=== PATIENT | male | born 1955 | race Caucasian/White ===

== ENCOUNTER → 2020-11-22 15:59 | Outpatient (CLI) | payer OTHER, SELFPAY ==
--- NOTE | 2020-11-22 16:03 | DI.MRI.S_ITS ---
PROCEDURE: MR LUMBAR SPINE WO CON INDICATIONS: Radiculopathy, lumbar region TECHNIQUE: Noncontrast sagittal T1 spin echo and T2 fast echo, sagittal STIR, axial T1 and T2 fast spin echo through the lumbar spine. In cases with scoliosis, additional coronal T2 fast spin echo may be performed. COMPARISON: [facility], MR, MR LUMBAR SPINE WITHOUT CONTRAST, 11/16/2018, 9:56. [facility] [place], CR, XR LUMBAR SPINE 2 OR 3 VIEWS, 11/07/2020, 15:07. FINDINGS: Image quality: Excellent. Alignment and Curvature: 5 lumbar type vertebral bodies are present by plain film. There is loss of normal lumbar lordosis. There is mild, grade 1 retrolisthesis of L1 on L2, L2 on L3, L3 on L4, and L5 on S1. Bone Marrow: Marrow is of normal overall signal. No acute vertebral body compression fractures. There is moderate reactive signal within the endplates adjacent to the L5-S1 intervertebral disc. Mild reactive signal within the endplates adjacent to the T10-T11, T11-T12, T12-L1, L1-L2, L2-L3, L3-L4, and L4-L5 intervertebral discs. Right L4-L5 hemilaminotomy. Spinal Cord: Conus medullaris terminates at the L1-L2 disc space level. Visualized cord demonstrates normal signal and size. There is a small lipoma of the filum terminalis which does not significantly contribute to canal, or foraminal stenosis. Paraspinous Soft Tissues: No paravertebral masses. T12-L1: Moderate disc desiccation. Mild disc height loss and diffuse disc bulge. Mild facet and ligamentum flavum hypertrophy. Mild epidural lipomatosis. Mild canal stenosis. Mild bilateral foraminal stenosis. No significant change. L1-L2: Moderate disc desiccation. Mild disc height loss and diffuse disc bulge. Mild facet and ligamentum flavum hypertrophy. Mild epidural lipomatosis. Mild canal stenosis. Mild bilateral foraminal stenosis. No significant change. L2-L3: Moderate disc height loss and desiccation. Mild diffuse disc bulge. Mild facet and ligamentum flavum hypertrophy. Mild epidural lipomatosis. Mild canal stenosis. Mild bilateral foraminal stenosis. No significant change. L3-L4: Moderate disc desiccation. Mild disc height loss and diffuse disc bulge. Moderate epidural lipomatosis. Mild facet and ligamentum flavum hypertrophy. There is increased, moderate to severe canal stenosis. No change in moderate bilateral foraminal stenosis. L4-L5: Moderate disc desiccation. Mild disc height loss. Mild diffuse disc bulge with superimposed right far lateral protrusion, increased from the prior examination. Postsurgical sequelae. There is decreased, mild canal stenosis. There is increased, moderate to severe left and increased, severe right foraminal stenosis. Left greater than right L4 nerve root compression is present. L5-S1: Severe disc height loss and desiccation. Mild diffuse disc bulge. Mild facet and ligamentum flavum hypertrophy. Moderate epidural lipomatosis. Increased, moderate canal stenosis. Increased, moderate to severe bilateral foraminal stenosis. IMPRESSION: 1. Multilevel degenerative disc and facet disease, as well as ligamentum flavum hypertrophy and epidural lipomatosis. 2. Postsurgical sequelae. 3. Multilevel canal stenoses, worst at L3-L4, where there is moderate to severe canal stenosis. 4. Multilevel foraminal stenoses, worst at L4-L5 where there is associated intraforaminal nerve root compression. Recommend correlation with clinical symptoms to ascertain relevance of this finding. Dictated by: Jon Rob M.D. on 11/22/2020 at 16:43 Approved by: Jon Rob M.D. on 11/22/2020 at 16:49
== END ==
PROVIDERS: Referring Provider Orthopaedic Surgery Orthopaedic Surgery of the Spine; Visit Provider Orthopaedic Surgery Orthopaedic Surgery of the Spine
DX: M51.16 Intervertebral disc disorders with radiculopathy, lumbar region (principal); M51.17 Intervertebral disc disorders with radiculopathy, lumbosacral region; M48.061 Spinal stenosis, lumbar region without neurogenic claudication; M48.07 Spinal stenosis, lumbosacral region; E88.2 Lipomatosis, not elsewhere classified
CPT/HCPCS: 72148

== ENCOUNTER → 2021-03-13 11:30 | Outpatient (CLI) | payer OTHER, SELFPAY | PROVIDERS: Referring Provider Orthopaedic Surgery Orthopaedic Surgery of the Spine; Visit Provider Orthopaedic Surgery Orthopaedic Surgery of the Spine | DX: Z01.818 Encounter for other preprocedural examination (principal) | CPT/HCPCS: 93005 ==

== ENCOUNTER → 2021-03-26 10:20 | Outpatient (CLI) | payer OTHER, SELFPAY ==
[2021-03-26 16:17] LABS: COVID19 -Nasal RAPID Negative (Negative)
== END ==
PROVIDERS: Visit Provider Nurse Practitioner Family
DX: Z01.812 Encounter for preprocedural laboratory examination (principal); Z20.822 Contact with and (suspected) exposure to COVID-19
CPT/HCPCS: 87635

== ENCOUNTER → 2021-03-26 11:38 | Outpatient (CLI) | payer OTHER, SELFPAY ==
--- NOTE | 2021-03-26 11:42 | DI.CT.S_ITS ---
PROCEDURE: CT LUMBAR SPINE WO CON INDICATIONS: Spinal stenosis, lumbar region with neurogenic cla TECHNIQUE: Noncontrast 3 mm thick sections acquired from the T12 level to the sacrum. Sagittal and coronal reformats were constructed. For radiation dose reduction, the following was used: automated exposure control. COMPARISON: [facility], MR, MR LUMBAR SPINE WO CON, 11/22/2020, 16:21. FINDINGS: Image quality: Excellent. Bones: No acute vertebral body compression fractures. No suspicious lytic or blastic bony lesions. No pars defects. S-shaped scoliotic curvature is seen. There is mild retrolisthesis seen at L2-L3, with minimal retrolisthesis seen at L3-L4. Mild retrolisthesis is seen at L5-S1. T12-L1: Mild loss of disc height is seen. Calcification is seen along this disc level, as on series 6, image 32. No significant disc bulge is seen. No significant neural foraminal or central canal narrowing can be seen. L1-L2: Mild loss of disc height is seen. Mild to moderate disc bulge is seen, which is eccentric to the right side. Mild bilateral neural foraminal narrowing is seen. Mild central canal narrowing is seen. L2-L3: Mild loss of disc height is seen. Vacuum disc phenomenon is seen at this level. Mild to moderate disc bulge is seen. Bridging endplate osteophytes are seen. Moderate bilateral neural foraminal narrowing is seen. Moderate central canal narrowing is seen. L3-L4: The disc height is well preserved. Mild to moderate disc bulge is seen, with a mild central disc protrusion. Moderate bilateral neural foraminal narrowing is seen. At least moderate central canal narrowing is seen. L4-L5: The disc height is well preserved. At least moderate disc bulge is seen. There is right hemilaminectomy change seen at this level. At least moderate facet hypertrophy is seen. There is moderate to severe bilateral neural foraminal narrowing seen, right worse than left. Mild central canal narrowing is seen. L5-S1: Moderate to severe loss of disc height is seen. Vacuum disc phenomenon is seen at this level. Endplate irregularity and sclerosis can be seen. At least moderate disc bulge is seen. There is at least moderate right-sided and moderate to severe left-sided neural foraminal narrowing seen. At least moderate central canal narrowing is seen. Soft tissues: No retroperitoneal masses or hematomas. Visualized aorta is normal in caliber. Dense atherosclerotic calcification can be seen. A normal appendix is incidentally noted. IMPRESSION: Multiple levels of lumbar spine degenerative change are seen, which are similar to the prior MRI. Prior right hemilaminectomy change again seen at L4-L5. Dictated by: Bruce Heredia M.D. on 03/26/2021 at 11:07 Approved by: Bruce Heredia M.D. on 03/26/2021 at 11:11
== END ==
PROVIDERS: PCP Internal Medicine; Referring Provider Orthopaedic Surgery Orthopaedic Surgery of the Spine; Visit Provider Orthopaedic Surgery Orthopaedic Surgery of the Spine
DX: M48.062 Spinal stenosis, lumbar region with neurogenic claudication (principal); M47.816 Spondylosis without myelopathy or radiculopathy, lumbar region
CPT/HCPCS: 72131

== ENCOUNTER 2021-03-28 10:17 | Day surgery (SDC) | payer OTHER, SELFPAY ==
[2021-03-21 09:43] VITALS: BMI 32.1
[2021-03-28] VITALS (18 sets, daily range): BP systolic 86–178; BP diastolic 47–97; PULSE 66–91; RESP 9–18; TEMP 35.9–36.8; O2SAT 88–97; BMI 32.1
--- NOTE | 2021-03-28 | DI.RAD.S_ITS ---
PROCEDURE: XR LUMBAR SPINE 2-3V INDICATIONS: L4-5 L5-S1 TLIF TECHNIQUE: 3 intraoperative fluoroscopic views of the lumbar spine were acquired. COMPARISON: None. FINDINGS: Intraoperative fluoroscopic images of lumbar spine shows posterior fusion at L4 through S1 levels with intervertebral spacer placement at L3-4 and L4-5 levels. IMPRESSION: Fluoro guidance was provided intraoperatively for posterior fusion at L4 through S1 levels. Dictated by: Nino Barreto M.D. on 03/28/2021 at 16:50 Approved by: Nino Barreto M.D. on 03/28/2021 at 16:51
[2021-03-28] MEDS: LACTATED RINGERS 1,000 ML 42 ML IV ×3 (11:02→17:59)
[2021-03-28] MEDS: ACETAMINOPHEN 325 MG TABLET 975 MG PO (11:50)
--- NOTE | 2021-03-28 12:07 | PM.PREOP ---
Pre-operative Note COVID-19 COVID-19 status: Negative Result date/Date tested (Pos, Neg/Pending): 03/26/21 Interval Note History & Physical reviewed/Exam performed by Physician: Yes Changes to H&P: No
[2021-03-28] MEDS: CEFAZOLIN 1 GM VIAL 2 GM IV ×3 (13:20→21:32)
--- NOTE | 2021-03-28 14:01 | SUR.OPER ---
Prone on spine table, head in foam head support, padded chest and pelvic supports, gel pad at knees, lower legs supported by pillows; nipples, genitalia and toes free of pressure, arms secured on foam padded arm boards at <90 degrees abduction. Tape over blanket at thigh secured to table.
[2021-03-28] MEDS: BUPIVACAINE 0.25% (PF) VIAL 30 ML INJ (14:11)
[2021-03-28] MEDS: EPINEPHrine 1 MG/ML 0.15 MG INJ (14:12)
[2021-03-28] MEDS: BUPIVACAINE LIPOSOME 266 MG/20 ML VIAL INJ (14:13)
--- NOTE | 2021-03-28 17:18 | PM.OP.1 ---
Operative Date/Time/Diagnoses Date of procedure: 03/28/21 Time of procedure: 13:00 Pre-op diagnosis: 1. L4-5, L5-S1 post laminectomy syndrome 2. Lumbar spinal stenosis with radiculopathy Post-op diagnosis: same Procedure & Clinicians Procedure: 1. L4-5, L5-S1 Postero-lateral and posterior interbody fusion 2. L4-5, L5-S1 interbody cage placement. 3. L4-5, L5-S1 decompressive laminectomy with bilateral facetecomies 4. L4-5, L5-S1 Posterior segmental instrumentation 5. [place] of bone marrow from iliac crest 6. Utilization of microsurgical technique and operating microscope 7. Robotic navigation assisted surgery Same procedure as scheduled: Yes Indications: Patient has been having chronic back pain and worsening lumbar radiculopathy. Patient failed multiple conservative management with worsening pain weakness and numbness in her lower extremity. Patient has been having difficulty performing activity of daily living. After discussing risks benefits of treatment options, patient elected proceed with surgery. Surgeon: Bhavin Shi Applier: Tigist Nunez Click Yes if Unassisted: No Anesthesia Type: General Operative Notes Closure Type: primary Specimen(s): none sent Prosthetic devices, grafts, tissues, transplants, or devices: Globus CREO MIS screws, Rise cages Applied: catheter Estimated Blood Loss (mL): 100 Blood products transfused: none Procedure in detail: Patient was seen in the preoperative area. Risks and benefits of the surgery was discussed with the patient. Informed consent was obtained from the patient and placed in the chart. Surgical site was marked. Patient was taken to the operative room. General anesthesia was administered. Prophylactic antibiotic was given to the patient less than 30 min before the incision was made. Patient was placed into a prone position on the Manuel table. Patient's back was then prepped and draped in the sterile fashion. Time-out was performed at this time. After patient was prepped and draped, patient's PSIS was palpated and marked bilaterally. Small 1 cm incision was made over the PSIS for placement of the reference probes. Two trocar was placed into the PSIS 1 on each side. The reference probe was attached to the trocar of the reference apparatus. At this time the C-arm imaging was used to confirm AP and lateral of L4-L5, L5-S1 vertebrae and merged the C-arm imaging using the [employer] robotic navigation system with the CT of the lumbar spine. After successful merging was completed and confirmed, skin marker was used to natalia out the skin incision using the [employer] robotic arm. Bilateral incision was made at this time. Pre templated trajectory was used and guided using the [employer] robotic navigation system for bilateral L4, L5, S1 pedicle screw placement. This was done by using the robotic arm to guide the high-speed bur to make a cortical entry point. Next a drill was placed also using the robotic arm and guided using the navigation system drilling partially through bilateral L4, L5 and S1 pedicles. Next L4, L5, S1 pedicle screws it was pre templated and measured was placed onto the power armored truck driver and inserted into the pedicles bilaterally. After all 6 screws were placed C-arm imaging was taken of both AP and lateral to confirm the placement. Excellent placement of the screws were confirmed and a matched precisely with the pre planned screw placement using the navigation system. MARs retractor was inserted using [employer] [place] guidence. Globus MARS retractors was placed inside the incision and docked onto the L4 and L5 lamina. Using microsurgical technique and operating microscope, a L4, L5 laminectomy and L4-5, L5-S1 facetectomy was performed using a Kerr[place] rongeur. Patient was found have severe lateral recess and neural foramen stenosis which was fully decompressed after the laminectomy facetectomy. More than 75% of the facets were removed during the process of decompression rendering L4-5, L5-S1 level grossly unstable and required a fusion procedure at the same time. The disc space at L4-5, L5-S1 was identified, and a total diskectomy was performed at L4-5, L5-S1 level. The endplates were decorticated using a rasp and shaver. The total diskectomy and decortication was performed at L4-5, L5-S1 level in order to to accomplish a L4-5, L5-S1 fusion. The local bone from the laminectomy and facetectomy was saved for local bone grafting. After the total diskectomy and decortication was completed, Trifecta bone graft material was combined with local bone that was harvested earlier. At this time, a separate skin is incision was made over the iliac crest. A Jamshidi needle was inserted into the iliac crest through a separate skin incision. 5 cc of bone marrow aspiration was obtained through the separate skin incision using a Jamshidi needle from the iliac crest. The bone marrow aspiration was combined with local bone and the Trifecta bone grafting material. The bone grafting material was placed into the L4-5, L5-S1 interbody space along with a expandable cage. The cage was expanded to its maximum height using the torque limiting screwdriver. The disc preparation as well as the cage insertion were also performed under navigation guidance. After the cage was placed, AP and lateral C-arm imaging was taken to confirm placement of the cage and excellent position was confirmed. Globus MARS retractor was inserted and docked onto the L4-5, L5-S1 posterolateral gutter on the right side. Using the power drill, posterior-lateral decortication was performed at L4-5, L5-S1 level until bleeding cortical bone was identified. The remaining bone grafting material was placed into the L4-5, L5-S1 posterior lateral gutter he order to accomplish posterolateral fusion at the L4-5, L5-S1 level. At this time the tulips were attached to the L4, L5, S1 pedicle screw shanks. After measuring the length of the rods, they were inserted into the tulips of the pedicle screws and locked in place using locking caps and torque limiting screwdriver bilaterally. Total 6 caps and 2 titanium rods was used in order to complete the posterior instrumentation construct. After all the hardware was placed, and confirmed with AP and lateral C-arm imaging, the wound was then irrigated with sterile normal saline and packed with Ray-Jammie gauze for 3 min to accomplish hemostasis. After the gauze was removed the deep fascia was closed with #1 Vicryl suture. The subcutaneous layer was closed with 2-0 Vicryl. The skin was closed with skin luis armando. Patient tolerated the procedure well. There were no complications. Neuro monitoring system was used to monitor patient's neurologic status throughout entire procedure. There was no disturbance of the neural monitoring signals throughout the case. Complications: none Post-operative Condition: stable Disposition: PACU Plan for aftercare: Admit to inpatient hospital
[2021-03-28] MEDS: LORazepam 2 MG/ML INJ 0.25 MG IV (17:45)
[2021-03-28] MEDS: hydrOXYzine 50 MG/ML INJ 25 MG IM (17:48)
[2021-03-28] MEDS: fentaNYL 100 MCG/2 ML INJ IV (17:54)
[2021-03-28] MEDS: OXYCODONE IR 5 MG TABLET PO (18:50)
[2021-03-28] MEDS: SODIUM CHLORIDE 0.9% 1,000 ML 100 ML IV (19:20)
[2021-03-28] MEDS: SENNOSIDES 8.6 MG TABLET 17.2 MG PO (20:37)
[2021-03-28] MEDS: DOCUSATE 100 MG CAPSULE PO (20:37)
[2021-03-28] MEDS: OXYCODONE IR 5 MG TABLET 10 MG PO (20:37)
[2021-03-29] MEDS: MELATONIN 3 MG TABLET 9 MG PO (00:22)
[2021-03-29] MEDS: hydrOXYzine pamoate 25 MG CAPSULE PO (00:22)
[2021-03-29] MEDS: OXYCODONE IR 5 MG TABLET 10 MG PO ×3 (00:22→11:06)
[2021-03-29] MEDS: HYDROMORPHONE 0.5 MG INJ IV ×2 (03:15→05:27)
[2021-03-29 03:50] VITALS: BP 130/62; PULSE 65; RESP 18; TEMP 36.9; O2SAT 96
[2021-03-29] MEDS: SODIUM CHLORIDE 0.9% 1,000 ML 100 ML IV (04:54)
[2021-03-29] MEDS: LEVOTHYROXINE 125 MCG TABLET PO (05:27)
[2021-03-29] MEDS: CEFAZOLIN 1 GM VIAL 2 GM IV (05:28)
[2021-03-29 05:54] LABS: Hematocrit 35.7 % (41-53); Hemoglobin 11.8 g/dL (13.5-17.5)
[2021-03-29 07:29] VITALS: BP 115/52; PULSE 67; RESP 16; TEMP 36.7; O2SAT 95
--- NOTE | 2021-03-29 07:34 | PM.DS.1 ---
History of Present Illness History of Present Illness Date Patient Seen: 03/29/21 Time Patient Seen: 07:34 Chief complaint: . Low back pain Narrative: The patient is complaining of [id number] low back pain this morning, is well controlled with current pain medications. He denies any fevers/chills/night sweats. He denies any numbness or tingling in his bilateral lower extremities. He has not worked with physical therapy yet. Overall he is feeling pretty well and is planning on going home today. Discharge Providers Provider Discharge Date: 03/29/21 Primary care physician: Chucho Mark MD Consults: 03/28/21 19:04 Consult to Occupational Therapy Evaluate & Treat Comment: Physician Instructions: Evaluate and treat Consult to Physical Therapy Evaluate & Treat Comment: Physician Instructions: Evaluate and Treat Discharge provider: Tigist Nnuez PA-C Summary Hospital Course Discharge Diagnosis: 1. L4-5, L5-S1 post laminectomy syndrome 2. Lumbar spinal stenosis with radiculopathy Hospital Course: Procedure: 1. L4-5, L5-S1 Postero-lateral and posterior interbody fusion 2. L4-5, L5-S1 interbody cage placement. 3. L4-5, L5-S1 decompressive laminectomy with bilateral facetecomies 4. L4-5, L5-S1 Posterior segmental instrumentation 5. [place] of bone marrow from iliac crest 6. Utilization of microsurgical technique and operating microscope 7. Robotic navigation assisted surgery Same procedure as scheduled: Yes Indications: Patient has been having chronic back pain and worsening lumbar radiculopathy. Patient failed multiple conservative management with worsening pain weakness and numbness in her lower extremity.? Patient has been having difficulty performing activity of daily living.? After discussing risks benefits of treatment options, patient elected proceed with surgery. Surgeon: Bhavin Shi Passenger Vessel Chef: Tigist Nunez Click Yes if Unassisted: No Anesthesia Type: General Operative Notes Closure Type: primary Specimen(s): none sent Prosthetic devices, grafts, tissues, transplants, or devices: Globus CREO MIS screws, Rise cages Applied: catheter Estimated Blood Loss (mL): 100 Blood products transfused: none Status at Discharge Cognitive/behavioral status at discharge: oriented Functional status at discharge: uses cane/walker Overall status at discharge: patient is progressing back to baseline Exam Vital Signs (past 8 hours): - 03/29/21 03:50 Temperature 98.4 F Pulse Rate 65 Respiratory Rate 18 Blood Pressure 130/62 Pulse Oximetry 96 Oxygen Delivery Method Room Air Oxygen Flow Rate 0 Narrative Exam Narrative: Pleasant 65-year-old male, resting comfortably in bed, no acute distress. Incision shows some scant drainage on the left side. Bilateral lower extremities with normal motor functions. Sensation is grossly intact to light touch in bilateral lower extremities. Both legs are warm and dry. Bilateral calves are soft, nontender to palpation. Objective Labs Result Diagrams: 03/29/21 05:25 Labs: Laboratory Results - last 24 hr 03/29/21 05:25 Hgb 11.8 L Hct 35.7 L PFSH Medical History Biceps tendon rupture (1985) Diabetes (02/2021) Gout History of cervical fracture (~1995) HLD (hyperlipidemia) HTN (hypertension) Hypothyroid Seasonal allergies Surgical History History of ankle surgery History of arthroscopy of right shoulder History of lumbar surgery (2018) Hx of shoulder surgery Hx of tonsillectomy Social History household members: none Smoking Status: Former smoker alcohol intake: current Discharge Assessment & Plan Assessment and Plan Assessment: Stable status post lumbar fusion Plan of Treatment: -limit bending, lifting, twisting -mobilize with PT -Weightbearing as tolerated with front wheel walker -Use Tylenol plus oxy IR as needed for pain -Plan is to DC home today after cleared by PT Discharge Plan Discharge Plan Patient Disposition: Home Discharge orders & Medications Discharge Orders: Discharge (Order); Ordered 03/29/21 Ordered By: Tigist Nunez Prescriptions: New acetaminophen 500 mg capsule 500 mg PO Q4H MDD Max 6 tabs per day PRN (Reason: Pain, Mild (1-3)) Qty: 90 RF: 0 docusate sodium 100 mg Capsule 100 mg PO BID PRN (Reason: As needed for constipation with narcotic pain meds) Qty: 20 RF: 0 hydroxyzine pamoate 25 mg Capsule 25 mg PO Q4HR PRN (Reason: Nausea/muscle spasms) Qty: 14 RF: 0 oxycodone 5 mg Tablet See Rx Instructions .ROUTE .COMPLEX PRN (Reason: Pain, Severe (7-10)) Qty: 42 RF: 0 Continued cetirizine [Aller-Jammie] 10 mg Tablet 10 mg PO DAILY RF: 0 allopurinol 100 mg Tablet 100 mg PO DAILY RF: 0 levothyroxine 125 mcg Tablet 125 mcg PO DAILY RF: 0 lisinopril 10 mg Tablet 20 mg PO QAM RF: 0 lisinopril 10 mg Tablet 10 mg PO QPM RF: 0 cholestyramine (with sugar) 4 gram Powder 4 g PO DAILY RF: 0 hydrochlorothiazide 12.5 mg Tablet 12.5 mg PO DAILY RF: 0 melatonin 10 mg Capsule 10 mg PO BEDTIME PRN (Reason: Sleep) RF: 0 aspirin 81 mg Capsule 81 mg PO DAILY RF: 0 Discontinued acetaminophen 650 mg Tablet 1,300 mg PO BID RF: 0 Follow up/Referrals: Chucho Mark MD [Primary Care Provider] - Bhavin Shi MD [Physician] - (Postoperative visit in 10-14 days, call the office to check availability of [place] office) Diet/Activity/Treatments Diet: Diet as Tolerated and Regular Activity: -limit bending, lifting, twisting -weight bearing as tolerated with front wheel walker Cold/Heat Therapy: Use ice as needed for pain, protect skin from direct contact with ice Other treatments: -Tylenol 500 mg every 4 hours for cdby-ym-rpcvredw pain -1-2 tablets of Oxy 5 every 4 hours as needed for moderate to severe pain, use OTC constipation meds as needed with this medication Skin/Wound/Dressing Care Report to your healthcare provider any signs of infection, such as:: chills, fever, night sweats, unusual drainage and unusual redness Dressing: -okay to shower after 48 hours -please change with gauze and tape the dressing if it becomes wet, soiled, saturated Visit Report/Discharge Packet Instructions: DI for Transforaminal Lumbar Interbody Fusion Stand Alone Forms: Surgery Discharge Discharge Data Primary Care Provider: Chucho Mark Attending Provider: Bhavin Shi
[2021-03-29 08:19] VITALS: BP 115/52
[2021-03-29] MEDS: DOCUSATE 100 MG CAPSULE PO (08:19)
[2021-03-29] MEDS: hydroCHLOROthiazide 25 MG TABLET 12.5 MG PO (08:19)
[2021-03-29] MEDS: lisinopriL 10 MG TABLET 20 MG PO (08:19)
[2021-03-29] MEDS: CHOLESTYRAMINE/ASPARTAME 4 GM PACK PO (08:19)
[2021-03-29] MEDS: allopurinoL 100 MG TABLET PO (08:19)
[2021-03-29] MEDS: LORATADINE 10 MG TABLET PO (08:19)
--- NOTE | 2021-03-29 09:20 | OT.IP.EVAL ---
Current Diagnoses Spondylolisthesis, lumbosacral region (03/28/21) Spinal stenosis, lumbar region with neurogenic claudication (03/28/21) Postlaminectomy syndrome, not elsewhere classified (03/28/21) Surgery Performed Operation Date: 03/28/21 12:15 Actual Procedures p L4-5, L5-S1 TLIF with posterior instrumentation(Not Applicable) - Bhavin Shi MD Past Medical History (Last Reviewed 03/29/21 @ 07:36 by Tigist Nunez PA-C) Biceps tendon rupture (1985) Diabetes (02/2021) Gout History of ankle surgery History of arthroscopy of right shoulder History of cervical fracture (~1995) History of lumbar surgery (2018) HLD (hyperlipidemia) HTN (hypertension) Hx of shoulder surgery Hx of tonsillectomy Hypothyroid Seasonal allergies Surgical History (Last Reviewed 03/29/21 @ 07:36 by Tigist Nunez PA-C) History of ankle surgery History of arthroscopy of right shoulder History of lumbar surgery (2018) Hx of shoulder surgery Hx of tonsillectomy Occupational Therapy Inpatient Evaluation/Re-Eval M1 PT/OT-IP Prior Functional Status Start: 03/29/21 09:25 Freq: NEEDED Status: Active Protocol: Document 03/29/21 09:26 [facility] (Rec: 03/29/21 09:41 [facility] [id number]) Medical Review Prior Functional Status Communication Independent. Mobility and Gait Pt states did not use a device to walk with. Activities of Daily Living and IADL's Completely independent for all his ADL and IADL needs. Social History Household Members none Living Arrangements Apartment/Condo Number of Floors (Floors) One Floor Number of Stairs To Enter/Railing? Just a threshold to get into his studio. Home Environment Standard Height Toilet,Walk in Shower Home Equipment Front Wheel Walker,Long Handled Shoe Horn M2 OT-IP Current Condition Start: 03/29/21 09:25 Freq: Status: Active Protocol: Document 03/29/21 09:26 [facility] (Rec: 03/29/21 09:41 [facility] [id number]) Occupational Therapy Current Condition Current Condition Evaluation Date 03/29/21 Treatment Diagnosis S/p L4-5, S5-S1 TLIF Diagnosis Onset Date 03/28/21 Post Operative Precautions Lumbar Precautions Log Roll,No Twisting,Limit Bending,Lifting Restriction of 10 lbs,Gait Belt above Incisional Area M3 OT- IP Subjective and Pain Start: 03/29/21 09:25 Freq: Status: Active Protocol: Document 03/29/21 09:26 [facility] (Rec: 03/29/21 09:41 [facility] [id number]) OT- Subjective Occupational Therapy Visit Type Type Initial Evaluation Visit Start Time 08:50 Visit Stop Time 09:20 Total Visit Minutes 30 Occupational Therapy Visit Comments Patient Comments Pt agreed to get up for Ot eval. Patient/Caregiver Goals TO go home. OT Pain Assessment Pain When Pain Assessed At Rest Pain Present Pain Present Pain Reported Location Medial Back Intensity 4 Scale Used Numeric (0 - 10) M4 OT- IP ADL's Start: 03/29/21 09:25 Freq: Status: Active Protocol: Document 03/29/21 09:26 [facility] (Rec: 03/29/21 09:41 [facility] [id number]) OT [id number] Comments OT Self-Feeding Comments Not at meal time. OT ADL-Grooming Comments OT Grooming Comments Pt not wanting to do grooming at this time. OT ADL-Oral Care Comments Oral Care Comments Pt refused, educated to either spit into a cup or hinge at his hips to lean to spit in to the sink to best follow his back precautions. OT ADL-Dressing General Eval Lower Body Dressing Ability Minimal Assistance Areas Needing Assistance Shoes Assistive Devices Dressing Assistive Devices Long Handled Shoe Horn,Time Clock Repairer Comments OT Dressing Comments Pt issued fuel verification technician to help increase ease and independence for LB dressing needs. Also suggested for pt to attach his fuel verification technician to his FWW so readily available to use. Also educated best to sit for dressing needs for safety. Pt states does not wear socks, just slip on shoes. OT ADL-Toileting Comments OT Toileting Comments Able to practice how to wipe if pt had a bowel movement. Pt able to appropriately do lateral lean and reach back with minimal twisting. Also suggested standing would also increase his independence to reach to wipe. OT ADL-Bathing Comments OT Bathing Comments Pt not wanting to shower at this time. Suggested pt have someone around and in addition to garbage pick up worker a shower chair for safety. M5 OT- IP IADL's Start: 03/29/21 09:25 Freq: Status: Active Protocol: Document 03/29/21 09:26 [facility] (Rec: 03/29/21 09:41 [facility] [id number]) OT-Instrumental Activities of Daily Living Home Safety Awareness Awareness of Need for Assistance at Home Good Awareness Ability to Problem Solve Emergency Able to Problem Solve Situations Medication Management Medication Management Comments Pt a little forgetful and best to have his nurse friend or brother assist him with his needs as needed. Money Management Money Management Comments Pt a little forgetful and best to have his nurse friend or brother assist him with his needs as needed. Meal Preparation Meal Preparation Comments Pt a little forgetful and best to have his nurse friend or brother assist him with his needs as needed. Investment Banker Investment Banker Comments Pt a little forgetful and best to have his nurse friend or brother assist him with his needs as needed. M6 OT- IP Functional Cognition Start: 03/29/21 09:25 Freq: Status: Active Protocol: Document 03/29/21 09:26 [facility] (Rec: 03/29/21 09:41 [facility] [id number]) Cognitive Factors Limiting Selfcare Function Cognitive Ability Level of Alertness Alert Patient Orientation Name,Place,Situation Attention Span Ability Capable of Focused Attention, Capable of Sustained Attention Ability to Follow Commands Able to Follow One Step Commands Memory Description Short Term Impaired Safety Awareness Decreased Recall of Precautions,Decreased Ability to Apply Precautions, Underestimates Need for Assistance Problem Solving Ability Needs Assist to Identify Solutions Cognitive Comments Cognitive Assessment Comments Pt a little forgetful and needing cues to apply his back precautions for log rolling and while getting dressed. Pt needing the nurse to assist him to work the camera on his cell phone. Pt also a little impulsive. OT- Vision and Hearing OT- Hearing Assessment OT- Hearing Assessment WFL OT- Vision Assessment Visual Acuity Glasses For Reading M7 OT- IP Mobility and Balance Start: 03/29/21 09:25 Freq: Status: Active Protocol: Document 03/29/21 09:26 [facility] (Rec: 03/29/21 09:41 [facility] [id number]) OT- Bed Mobility Assessment Rolling Type of Rolling Roll to Right Level of Assistance Standby Assistance Supine to Sit Supine to Sit Assist Standby Assistance Sit to Supine Sit to Supine Assist Standby Assistance OT-Transfer Assessment Sit to and From Stand Sit to and from Stand Standby Assistance Transfers Transfer Ability Standby Assistance Technique Transfer Destination Bed,Chair,Toilet Devices Transfer Assistive Devices Gait Belt,Front Wheeled Walker Comments Mobility Comments Pt mainly vc for log rolling and back precautions, otherwise able to more with SBA with FWW. OT- Gait Assessment Gait Gait Assistance Required: Standby Assistance Comments Gait Ability Comments SBA with FWW in the room. OT- Balance Assessment Sitting Balance and Reactions Static Sitting Balance Ability Normal Dynamic Sitting Balance Ability Good Standing Balance and Reactions Static Standing Balance Ability Good Dynamic Standing Balance Ability Fair M8 OT- IP Objective Assessments Start: 03/29/21 09:25 Freq: Status: Active Protocol: Document 03/29/21 09:26 [facility] (Rec: 03/29/21 09:41 [facility] [id number]) OT Gross Range of Motion Upper Extremity Range of Motion Assessment Within Functional Limits OT-Muscle Tone Assessment Muscle Tone WNL Yes M9 OT- IP Assessment and Plan Start: 03/29/21 09:25 Freq: Status: Active Protocol: Document 03/29/21 09:26 [facility] (Rec: 03/29/21 09:41 [facility] [id number]) OT Summary Assessment and Plan Potential Rehabilitation Potential Good Analytic Complexity at Evaluation Low Summary OT Impairments Pain,Balance,Functional Cognition,Functional Mobility, Dressing,Bathing Progress Towards Goals Progressing Toward Goals Assessment Summary Pt low complexity and main barriers that pt is a little forgetful of his back precautions and needing cues to keep the FWW in front of him at all times and take it slow. Pt states if needing able to stay with his brother, but prefers to stay in his studio and has a nurse friend that will check on him often. Pt issued a fuel verification technician and suggested to have assist for showering and IADl needs. In addition would be beneficial to get a shower chair. To go home with assist when medically stable. Goals Grooming Goal Independent Dressing Goal Independent Toileting Goal Independent Bathing Goal Independent Toilet Transfer Goal Independent Shower Transfer Goal Independent Patient/Caregiver Education Goal Demonstrate Post-Op Precautions Days to Meet Goals 2 Frequency of Treatment Frequency Of Treatment Once a Day Treatment Plan OT Treatment Plan ADL Training,Functional Cognition Training,Functional Mobility,Patient/Family Education,Discharge Planning Other Treatment Recommendations and Next Shower if still here. Treatment Focus Discharge Recommendations OT Discharge Recommendations Home with Assistance Home Equipment Needs Showre chair Transportation Needs at Discharge Private Vehicle
--- NOTE | 2021-03-29 09:30 | PT.IIE ---
Current Diagnoses Spondylolisthesis, lumbosacral region (03/28/21) Spinal stenosis, lumbar region with neurogenic claudication (03/28/21) Postlaminectomy syndrome, not elsewhere classified (03/28/21) Surgery Performed Operation Date: 03/28/21 12:15 Actual Procedures p L4-5, L5-S1 TLIF with posterior instrumentation(Not Applicable) - Bhavin Shi MD Medical History (Last Reviewed 03/29/21 @ 07:36 by Tigist Nunez PA-C) Biceps tendon rupture (1985) Diabetes (02/2021) Gout History of cervical fracture (~1995) HLD (hyperlipidemia) HTN (hypertension) Hypothyroid Seasonal allergies Physical Therapy Inpatient Evaluation/Re-Eval M1 PT/OT-IP Prior Functional Status Start: 03/29/21 09:25 Freq: NEEDED Status: Discharge Protocol: Document 03/29/21 09:26 [facility] (Rec: 03/29/21 09:41 [facility] [id number]) Medical Review Prior Functional Status Communication Independent. Mobility and Gait Pt states did not use a device to walk with. Activities of Daily Living and IADL's Completely independent for all his ADL and IADL needs. Social History Household Members none Living Arrangements Apartment/Condo Number of Floors (Floors) One Floor Number of Stairs To Enter/Railing? Just a threshold to get into his studio. Home Environment Standard Height Toilet,Walk in Shower Home Equipment Front Wheel Walker,Long Handled Shoe Horn M1 PT/OT-IP Prior Functional Status Start: 03/29/21 13:09 Freq: NEEDED Status: Active Protocol: Document 03/29/21 09:30 [facility] (Rec: 03/29/21 13:15 [facility] [id number]) Medical Review Prior Functional Status Medical History Reviewed Yes Communication able to make needs known Mobility and Gait pt stated that he is independent with all mobilities and ambulation wtihout AD Social History Household Members none Living Arrangements Apartment/Condo Number of Floors (Floors) One Floor Number of Stairs To Enter/Railing? no steps to enter Home Environment Standard Height Toilet,Walk in Shower Home Equipment Front Wheel Walker,Hand Held Shower Additional Social History Comment has a brother that lives ~ 3 miles and a neighbor that can assist as needed M2 PT-IP Current Condition Start: 03/29/21 13:09 Freq: NEEDED Status: Active Protocol: Document 03/29/21 09:30 [facility] (Rec: 03/29/21 13:15 [facility] [id number]) Physical Therapy Current Condition Current Condition Evaluation Date 03/29/21 Treatment Diagnosis s/p L4-5, L5S1 fusion/lami; difficulty in walking Onset Date 03/28/21 Precautions Lumbar Precautions Log Roll,No Twisting,Limit Bending,Lifting Restriction of 10 lbs,Gait Belt above Incisional Area M3 PT-IP Subjective Start: 03/29/21 13:09 Freq: NEEDED Status: Active Protocol: Document 03/29/21 09:30 [facility] (Rec: 03/29/21 13:15 [facility] [id number]) Subjective Physical Therapy Visit Type Type Initial Evaluation Visit Start Time 09:30 Visit Stop Time 09:57 Total Visit Minutes 27 Number of GAS PUMPING STATION SUPERVISOR Visits 0 Physical Therapy Visit Comments Patient Comments pt is agreeable to do PT Therapy Pain Assessment Pain When Pain Assessed At Rest Pain Present Pain Present Pain Reported Location Medial Back Intensity 4 Scale Used Numeric (0 - 10) Pain Management Techniques Modification of Treatment,Re- positioning,Timing of Activity with Medications M4 PT-IP Mobility and Gait Start: 03/29/21 13:09 Freq: NEEDED Status: Active Protocol: Document 03/29/21 09:30 [facility] (Rec: 03/29/21 13:15 [facility] [id number]) PT-Bed Mobility Assessment Rolling Type of Rolling Log Rolling Level of Assist Standby Assistance Supine to Sit Supine to Sit Standby Assistance Sit to Supine Sit to Supine Standby Assistance PT-Transfer Assessment Sit to and From Stand Sit to and from Stand Standby Assistance Equipment Transfer Assistive Device Gait Belt,Front Wheeled Walker Orthotic/Prosthetic Devices or Brace: No Transfers Transfer Destination Bed,Chair Transfer Technique ambulated Gait Assessment Gait Gait Assistance Required: Standby Assistance Distance (Feet) 75 Able to Maintain Weight Bearing Status Yes During Gait Assistive Devices Assistive Device Gait Belt,Front Wheeled Walker Orthotic/Prosthetic Devices or Brace: No Gait Deviations General Gait Pattern Antalgic,Decreased Stride Length,Decreased Feet Clearance Factors Limiting Gait Function Factors Limiting Gait Function Decreased Activity Tolerance, Decreased Strength,Limited Range of Motion,Pain,Poor Balance PT-Balance Assessment Sitting Balance and Reactions Static Sitting Balance Ability Good Dynamic Sitting Balance Ability Good Standing Balance and Reactions Static Standing Balance Ability Fair Dynamic Standing Balance Ability Fair Device Used FWW M5 PT-IP Objective Assessments Start: 03/29/21 13:09 Freq: NEEDED Status: Active Protocol: Document 03/29/21 09:30 [facility] (Rec: 03/29/21 13:15 [facility] [id number]) Orientation Orientation/Cognition Level of Alertness Alert Orientation Name,Place,Situation Language Function Ability No Deficits Noted Safety Awareness Understands Safety Issues Memory Description No Deficits Noted Gross Range of Motion Lower Extremity ROM Assessment Within Functional Limits Strength Lower Extremity Strength Assessment Right Impaired Knee 4-/5 Coordination Assessment Gross Coordination Gross Coordination WNL Sensation Assessment Sensation Gross Sensation WNL Muscle Tone Muscle Tone WNL Yes M6 PT-IP Treatment Start: 03/29/21 13:09 Freq: NEEDED Status: Active Protocol: Document 03/29/21 09:30 [facility] (Rec: 03/29/21 13:15 [facility] [id number]) Physical Therapy Treatment Education Education Provided Precautions,Weight Bearing Status,Post-Op Packet,Safety M7 PT-IP Assessment and Plan Start: 03/29/21 13:09 Freq: NEEDED Status: Active Protocol: Document 03/29/21 09:30 [facility] (Rec: 03/29/21 13:15 [facility] [id number]) PT Summary Assessment and Plan Potential Rehabilitation Potential Good Status of Condition at Evaluation Stable Summary Impairments Pain,ROM,Strength,Balance, Coordination,Sensation,Tone, Cognition,Bed Mobility, Transfers,Gait,Activity Tolerance Assessment Summary pt requiring SBA with mobility and ambulation using FWW. pt stated that his friend next door who is a reitred nurse can assist him as needed. pt plans to go home today. Goals Bed Mobility Goal Independent Transfer Goal Independent,Front Wheeled Walker Gait Goal Independent,Front Wheel Walker Gait Distance 250 Days to Meet Goals 3 Frequency of Treatment Frequency Of Treatment Twice a Day Treatment Plan Physical Therapy Treatment Plan Bed Mobility Training,Transfer Training,Gait Training, Therapeutic Exercise,Balance Retraining,Post Op Education, Discharge Planning,Hot or Cold Pack,Neuromuscular Re-ed, Coordination Retraining,Manual Therapy Precautions Lumbar Precautions Log Roll,No Twisting,Limit Bending,Lifting Restriction of 10 lbs,Gait Belt above Incisional Area Recommendations To Nursing Amount of Assist Needed Standby Assistance Discharge Recommendations PT Discharge Recommendations Home with Assistance Transportation Needs at Discharge Private Vehicle
--- NOTE | 2021-03-29 10:12 | CM.DANOTE ---
DCP: Case received, EMR reviewed and met with patient. Introduced self and role. Was able to obtain information from patient regarding his baseline activity status prior to his surgery. DCP assessment completed with information currently available. Patient is a 65 year old male who admitted yesterday morning to the care of the orthopedic team. PCP: Dr. Mark Payer: confirmed: [facility]. Patient came to the hospital via private vehicle for a surgical procedure. He had L4-5, L5-S1 posteo-lateral & posterior interbody fusion. Patient has history of spinal stenosis. He has had back surgeries before, had one in 2019. He has had chronic back pain and right numbness. Met with patient in his room. He was sitting up in his chair, alert and oriented. He has worked with the therapy team. Patient resides in [place] alone, is retired. He mentioned that he has a brother that lives in town that is supportive, as well as a friend nearby who is a retired nurse. He stated that she gave him a walker to use if needed. He is independent at his baseline, prior to his surgery. P: Patient has discharge orders to go home today. Leatha Catherine RN/[facility]
--- NOTE | 2021-03-29 10:47 | PC.NURSE ---
Addendum entered by Vonda Paredes R.N. 03/29/21 11:17: Pt out via w/c by [employer] to Brother's POV with all belongings. Original Note: Pt is dressed and ready for discharge home with Brother. IV removed. Dressing changed. Spare dressing provided. Went over D/C instructions with Pt - discussed d/c meds, time of last dose, reviewed stroke education, s/s of infection, showering, back precautions. and follow up. Encouraged Pt to drink plenty of fluids to prevent constipation or dehydration. Reminded Pt not to drive while on narcotics. Pt's Brother will be staying with him. Pharmacy in to see Pt and performed medication teaching. Pt denies further questions and will be taken out via w/c by [employer] to POV with Brother and all belongings.
== END 2021-03-29 11:17 | disposition home or self-care (01) ==
LOC: OR 10:18 → AC 13:52
PROVIDERS: PCP Internal Medicine; Referring Provider Orthopaedic Surgery Orthopaedic Surgery of the Spine; Visit Provider Orthopaedic Surgery Orthopaedic Surgery of the Spine
PROC: (CPT 22633; principal; 2021-03-28 12:15)
DX: M96.1 Postlaminectomy syndrome, not elsewhere classified (principal); M48.062 Spinal stenosis, lumbar region with neurogenic claudication; M54.16 Radiculopathy, lumbar region; M43.17 Spondylolisthesis, lumbosacral region; E78.5 Hyperlipidemia, unspecified; I10 Essential (primary) hypertension; E03.9 Hypothyroidism, unspecified; Z87.891 Personal history of nicotine dependence
CPT/HCPCS: 22633; 22634; 22842; 22853 ×2; 20939; 63047; 63048; 36415; 72100; 76000; 82962; 85014; 85018; 97161; 97165; 97535; C1776; C9290; J0171; J0330; J0690; J1100; J1170; J2060; J2250; J2405; J2704; J3010; J3410